=== PATIENT | male | born 1955 | race Caucasian/White ===

== ENCOUNTER 2023-09-27 06:27 | Day surgery (SDC) | payer MEDICARE, BC ==
[2023-09-20 15:01] LABS: BILIRUBIN,URINE NEGATIVE (Neg); CLARITY,URINE CLEAR (Clear); COLOR,URINE YELLOW (Yellow); GLUCOSE, URINE NEGATIVE (Neg); KETONES,URINE NEGATIVE (Neg); LEUKOCYTE ESTERASE ,URINE NEGATIVE (Neg); NITRITES, URINE NEGATIVE (Neg); OCCULT BLOOD,URINE NEGATIVE (Neg); PH,URINE 6.5 (4.8-8.0); PROTEIN,URINE NEGATIVE (Neg); UROBILINOGEN,URINE 0.2 E.U/dL (0.2-1.0)
[2023-09-20 15:02] LABS: BASOPHILS % (AUTO) 0.8 % (0-1); EOSINOPHILS # (AUTO) 0.1 X10'3 (0-0.9); EOSINOPHILS % (AUTO) 2.3 % (0-6); LYMPHOCYTES # (AUTO) 1.6 X10'3 (1.1-4.8); LYMPHOCYTES % (AUTO) 30.2 % (21-51); MEAN CORPUSCULAR HEMOGLOBIN 30.4 PG (27.0-31.0); MEAN CORPUSCULAR HGB CONC 32.4 g/dL (33.0-36.5); MEAN CORPUSCULAR VOLUME 93.9 FL (78-98); MEAN PLATELET VOLUME 6.2 FL (7.4-10.4); MONOCYTES # (AUTO) 0.4 X10'3 (0-0.9); MONOCYTES % (AUTO) 8.1 % (2-12); NEUTROPHILS % (AUTO) 58.6 % (42-75); PRE OP HEMATOCRIT 45.7 % (42.0-52.0); PRE OP HEMOGLOBIN 14.8 g/dL (14.0-17.9); PRE OP PLATELET COUNT 286 X10'3 (140-440); PRE OP WHITE BLOOD COUNT 5.2 10'3 (4.8-10.8); RED BLOOD COUNT 4.87 X10'6 (4.70-6.10); RED CELL DISTRIBUTION WIDTH 13.5 % (11.5-14.5)
[2023-09-20 15:03] LABS: UA COLLECTION TYPE NON-SPECIFIED
[2023-09-20 15:24] LABS: ALBUMIN 3.7 G/DL (3.4-5.0); ALBUMIN/GLOBULIN RATIO 1.1 (1.1-1.5); ALKALINE PHOSPHATASE 70 IU/L (46-116); BLOOD UREA NITROGEN 16 MG/DL (7-18); BUN/CREATININE RATIO 17.8 (10.0-20.0); CALCIUM 8.8 MG/DL (8.5-10.1); CHLORIDE 105 MMOL/L (99-107); PRE OP ALT 31 U/L (30-65); PRE OP ANION GAP 6 (8-16); PRE OP AST 37 U/L (10-37); PRE OP BILIRUB, TOTAL 0.6 MG/DL (0.0-1.0); PRE OP GLUCOSE 85 MG/DL (70-104); PRE OP POTASSIUM 3.9 MMOL/L (3.4-5.1); PRE OP SODIUM 140 MMOL/L (135-145); TOTAL CARBON DIOXIDE 29.2 MMOL/L (24-32); eGFR 84 ML/MIN
[~2023-09-27] VITALS: Ht 175.3 cm; Wt 74.2 kg
[2023-09-27] VITALS (11 sets, daily range): BP systolic 107–138; BP diastolic 65–80; PULSE 45–62; RESP 0–17; TEMP 97.3; O2SAT 95–100
[2023-09-27] MEDS: cefazolin 2gm/D5W 100mL 100 ML IV ONE (05:30)
[~2023-09-27 06:27] MED LIST: NO HOME MEDS
[2023-09-27] MEDS: ringers solution, lacted 1,000 ML IV SCH ×2 (07:14→11:00)
[2023-09-27] MEDS: famotidine 20mg tablet PO ONE (07:14)
[2023-09-27] MEDS ORDERED: desflurane 240ml liquid inh. IH ONE (08:40)
[2023-09-27] MEDS ORDERED: midazolam 1 mg/ML 2ml injection ONE (08:41)
[2023-09-27] MEDS ORDERED: ROPIVAcaine 0.5% (5mg/ml) 30ml vial ONE (08:41)
[2023-09-27] MEDS ORDERED: propofol inj 20 ML IV ONE (08:41)
[2023-09-27] MEDS ORDERED: ondansetron/PF 4mg/2ml inj ONE (08:41)
[2023-09-27] MEDS ORDERED: acetaminophen 1,000mg/100ml IV 100 ML IV ONE (08:41)
[2023-09-27] MEDS ORDERED: LIDOcaine 2% (20mg/ml) 5ml vial ONE (08:41)
[2023-09-27] MEDS ORDERED: fentaNYL/PF 50MCG/1 ML 2ML syringe ONE (08:41)
[2023-09-27] MEDS ORDERED: dexamethasone sod phosphate 4mg/ml inj. ONE (08:54)
[2023-09-27] MEDS ORDERED: labetalol 20mg/4ml (5mg/ml) syringe IV PRN (09:10)
[2023-09-27] MEDS ORDERED: fentaNYL/PF 50MCG/1 ML 2ML syringe IV PRN ×2 (09:10)
[2023-09-27] MEDS ORDERED: morphine 4 MG/ML inj SYRINge IV PRN (09:10)
[2023-09-27] MEDS ORDERED: ondansetron/PF 4mg/2ml inj IV PRN (09:10)
[2023-09-27] MEDS ORDERED: hydrALAZINE 20mg/ml inj. IV PRN (09:10)
[2023-09-27] MEDS: morphine 2 MG/ML inj. syringe IV PRN (10:22)
== END 2023-09-27 11:06 | disposition home or self-care (01) ==
LOC: PAS 06:27
PROVIDERS: ATTEND Podiatrist Foot & Ankle Surgery
DX: T84.84XA Pain due to internal orthopedic prosthetic devices, implants and grafts, initial encounter (principal); M76.71 Peroneal tendinitis, right leg; M89.9 Disorder of bone, unspecified; Z79.82 Long term (current) use of aspirin; Z79.891 Long term (current) use of opiate analgesic; Z79.899 Other long term (current) drug therapy; Z98.890 Other specified postprocedural states; Y79.2 Prosthetic and other implants, materials and accessory orthopedic devices associated with adverse incidents; Y92.89 Other specified places as the place of occurrence of the external cause
CPT/HCPCS: 20680; 28122; 28200; 36415; 80053; 81003; 82948; 85025; A6223; J0131; J0690; J1100; J2250; J2270; J2405; J2704; J2795; J3010; J3490; J7030; J7120; Z7506; Z7508; Z7512; A4215; A4618; A6449; A7000

== ENCOUNTER 2025-05-20 09:23 | Outpatient (CLI) | payer MEDICARE, BC ==
--- NOTE | 2025-05-20 13:07 | RADIOLOGY REPORT ---
CLINICAL INDICATION: PAIN IN RIGHT KNEE TECHNIQUE: Multiplanar, multisequence MRI of the right knee was performed without contrast. Contrast: None. COMPARISON: None FINDINGS: Joint space and synovium: There is small knee joint effusion. There is a Quintero's cyst measuring 2.5 cm in craniocaudal dimension. No synovitis. Bones and articular cartilage: There is moderate bone marrow edema in the medial femoral condyle, associated with a low signal intensity fracture plain in the medial femoral condyle reflecting an subchondral insufficiency fracture. The bone marrow signal characteristics are otherwise normal throughout the knee. Alignment is maintained. Multifocal high-grade articular cartilage loss is noted in the medial and lateral patellar facets. There is no significant or full-thickness articular cartilage loss in the medial or lateral tibiofemoral compartment. Menisci: There is a horizontal tear in the posterior horn body junction of the medial meniscus. The lateral meniscus is intact. Tendons and ligaments: The tendons in the posterior knee are intact. The extensor mechanism is intact. The anterior cruciate ligament is intact. The posterior cruciate ligament is intact. The medial collateral ligament and the lateral collateral ligament stabilizing complex are intact. Muscles: Regional muscles are preserved in bulk and signal characteristics. Other: None. IMPRESSION: 1. Subchondral insufficiency fracture in the medial femoral condyle. 2. Horizontal tear in the posterior horn body junction of the medial meniscus. 3. Small knee joint effusion and Quintero's cyst.
== END 2025-05-20 23:59 | disposition home or self-care (01) ==
LOC: MRI02 09:23
PROVIDERS: ATTEND Family Medicine
DX: S72.431A Displaced fracture of medial condyle of right femur, initial encounter for closed fracture (principal); M25.561 Pain in right knee; M71.21 Synovial cyst of popliteal space [Baker], right knee; X58.XXXA Exposure to other specified factors, initial encounter; Y93.89 Activity, other specified; Y92.89 Other specified places as the place of occurrence of the external cause; Y99.8 Other external cause status; R60.0 Localized edema; M25.461 Effusion, right knee
CPT/HCPCS: 73721